=== PATIENT | female | born 1945 | race Caucasian/White ===

== ENCOUNTER 2017-07-18 08:31 | Outpatient (CLI) | payer MEDICARE ==
--- NOTE | 2017-07-18 09:17 | RAD ---
2 VIEWS CHEST: Date: 07/18/17 COMPARISON: None. HISTORY: Dyspnea. FINDINGS: Two views of the chest show normal sized cardiomediastinal silhouette. There is no evidence of conso lidation, mass, or pleural effusion. The bones are unremarkable. IMPRESSION: No evidence of acute cardiopulmonary disease. POS: [facility]
== END 2017-07-18 08:32 | disposition home or self-care (01) ==
LOC: RAD 08:31
PROVIDERS: ATTEND Internal Medicine Critical Care Medicine
DX: R06.00 Dyspnea, unspecified (principal)
CPT/HCPCS: 71020

== ENCOUNTER 2017-09-17 19:30 | Outpatient (CLI) | payer MEDICARE | END 2017-09-17 19:31 | disposition home or self-care (01) | LOC: SLEEPLAB 19:30 | PROVIDERS: ATTEND Internal Medicine Critical Care Medicine | DX: G47.33 Obstructive sleep apnea (adult) (pediatric) (principal); R09.89 Other specified symptoms and signs involving the circulatory and respiratory systems; R06.83 Snoring | CPT/HCPCS: 95811 ==

== ENCOUNTER 2024-09-21 11:03 | Outpatient (CLI) | payer MEDICARE | END 2024-09-21 11:04 | disposition home or self-care (01) | LOC: SCSRAD 11:03 | PROVIDERS: ATTEND Nurse Practitioner Family | DX: M25.571 Pain in right ankle and joints of right foot (principal) ==